=== PATIENT | male | born 1950 | race Caucasian/White ===

== ENCOUNTER 2017-03-29 07:51 | Inpatient (IN) | payer MEDICARE, OTHER ==
[~2017-03-29] VITALS: Ht 152.4 cm; Wt 49.8 kg
[2017-03-29] MEDS ORDERED: SODIUM CHLORIDE 0.9% 1,000 ML IV ONE ×2 (08:15→10:00)
[2017-03-29] MEDS ORDERED: ACETAMINOPHEN 325 MG TABLET PO ONE (08:30)
[2017-03-29] MEDS ORDERED: NACL1 PO (09:03)
[2017-03-29] MEDS ORDERED: ENOX40DI9 SQ (09:03)
[2017-03-29] MEDS ORDERED: [UNRECOGNIZED DRUG - CODE] PO (09:03)
[2017-03-29] MEDS ORDERED: TAMS0.4C32 PO (09:03)
[2017-03-29] MEDS ORDERED: FINA5TAB41 PO (09:03)
[2017-03-29] MEDS ORDERED: CARB4OS OU (09:03)
[2017-03-29] MEDS ORDERED: QUET100T PO (09:03)
[2017-03-29] MEDS ORDERED: METO25 PO (09:03)
[2017-03-29] MEDS ORDERED: ASPI81 PO (09:03)
[2017-03-29] MEDS ORDERED: ACET-66 PO (09:03)
[2017-03-29] MEDS ORDERED: LORA2TAB2 PO (09:03)
[2017-03-29] MEDS ORDERED: OXCA300T PO (09:03)
[2017-03-29] MEDS ORDERED: PROZ10 PO (09:03)
[2017-03-29] MEDS ORDERED: GABA-529 PO (09:03)
[2017-03-29] MEDS ORDERED: HYDR-3290 PO (09:03)
[2017-03-29 09:34] LABS: APPEARANCE,URINE CLEAR (CLEAR); BILIRUBIN,URINE NEGATIVE (NEGATIVE); GLUCOSE, URINE (UA) NEGATIVE (NEGATIVE); KETONES,URINE NEGATIVE (NEGATIVE); LEUKOCYTE ESTERASE ,URINE SMALL (NEGATIVE); NITRATE,URINE NEGATIVE (NEGATIVE); OCCULT BLOOD,URINE NEGATIVE (NEGATIVE); PH,URINE 5.5 (5.0-8.0); PROTEIN,URINE NEGATIVE (NEGATIVE); UROBILINOGEN,URINE 0.2 mg/dL (<=1.0)
[2017-03-29 09:45] LABS: BACTERIA,URINE None Seen /HPF (None Seen); RBC,URINE None Seen /HPF (0-2); SQUAMOUS EPITHELIAL CELL,UR Few /LPF (None Seen)
[2017-03-29 09:59] LABS: HEMATOCRIT 30.9 % (41-53); HEMOGLOBIN 10.2 g/dL (13.5-17.5); MEAN CORPUSCULAR VOLUME 100 fL (80-100); PLATELET COUNT (AUTO) 305 K/uL (150-450); RED BLOOD CELL COUNT(AUTO) 3.09 MIL/uL (4.50-5.90); RED CELL DISTRIBUTION WIDTH 15.8 % (11.5-14.5)
[2017-03-29] MEDS ORDERED: LORazepam 2 MG/ML VIAL IVP ONE (10:00)
[2017-03-29 10:03] LABS: ANION GAP 9 mmol/L (8-16); CALCIUM, TOTAL 9.4 mg/dL (8.8-10.5); CARBON DIOXIDE 29 mmol/L (22-29); CHLORIDE 105 mmol/L (98-107); GLOMERULAR FILTR. RATE CALC > 60 mL/min (>60); GLUCOSE,RANDOM 76 mg/dL (70-110); POTASSIUM 4.2 mmol/L (3.5-5.1); SODIUM SERUM 143 mmol/L (136-145); UREA NITROGEN, BLOOD 27 mg/dL (7-18)
[2017-03-29 10:06] LABS: INR 1.2 (0.9-1.1); PROTHROMBIN TIME 12.7 SEC (9.4-11.6)
[2017-03-29 10:16] LABS: INFLUENZA TYPE A NEGATIVE FOR TYPE A (NEGATIVE); INFLUENZA TYPE B NEGATIVE FOR TYPE B (NEGATIVE)
[2017-03-29 10:16] LABS: LACTIC ACID 2.7 mmol/L (0.4-2.0)
[2017-03-29 10:28] LABS: ALANINE AMINOTRANSFERASE 23 U/L (12-78); ALBUMIN 2.8 g/dL (3.4-5.0); ALKALINE PHOSPHATASE 97 U/L (46-116); ASPARTATE AMINOTRANSFERASE 39 U/L (15-37); BILIRUBIN,TOTAL 0.5 mg/dL (0.1-1.0); CKMB RELATIVE INDEX 2.7 % (0.0-4.0); CREATINE KINASE MB 20.9 ng/mL (0-5); CREATINE KINASE, TOTAL 767 U/L (39-308); TOTAL PROTEIN, SERUM 7.1 g/dL (6.4-8.2)
[2017-03-29] MEDS ORDERED: PIPERACILLIN/TAZO 3.375 GM/D5W 50 ML IV ONE (10:30)
[2017-03-29 10:34] LABS: BAND NEUTROPHILS % (MANUAL) 18 % (1-5); EOSINOPHILS % (MANUAL) 1 % (1-6); LYMPHOCYTES % (MANUAL) 8 % (22-44); MONOCYTES % (MANUAL) 1 % (2-9); SEGMENTED NEUTROPHILS % 72 % (40-70)
[2017-03-29] MEDS ORDERED: BISACODYL 10 MG RECTAL RECTAL SUPPOSITORY PR PRN (11:15)
[2017-03-29] MEDS ORDERED: ALBUTEROL SULFATE 2.5 MG/0.5 ML NEB SOLUTION NEB PRN (11:15)
[2017-03-29] MEDS ORDERED: IPRATROPIUM BROMIDE 0.5 MG/2.5 ML NEB SOLUTION NEB PRN (11:15)
[2017-03-29] MEDS ORDERED: VANCOMYCIN HCL 1 GM/D5% WATER 200 ML IV ONE (12:00)
[2017-03-29 13:28] VITALS: BP 94/32
[2017-03-29] MEDS: SODIUM CHLORIDE 0.9% 1,000 ML IV SCH ×2 (13:56→22:40)
[2017-03-29] MEDS: PHENYLEPHRINE 200 MG/D5%-WATER 250 ML IV PRN (15:29)
[2017-03-29 16:00] VITALS: BP 93/51
[2017-03-29] MEDS ORDERED: ALBUMIN HUMAN 5%-12.5GM/250ML 250 ML IV SCH (16:00)
[2017-03-29] MEDS: PIPERACILLIN/TAZO 3.375 GM/D5W 50 ML IV SCH ×2 (17:16→22:41)
[2017-03-29] MEDS: ALBUMIN HUMAN 25%-12.5GM/50ML 50 ML IV SCH ×2 (17:16→22:40)
[2017-03-29 20:00] VITALS: BP 105/50
[2017-03-29] MEDS ORDERED: PNEUMOCOCCAL VACCINE POLYVALENT 0.5 ML VIAL [PPSV23] IM ONE (20:15)
[2017-03-29] MEDS: ACETAMINOPHEN 325 MG TABLET PO PRN (20:41)
[2017-03-29] MEDS: HEPARIN SODIUM,PORCINE 5,000 UNITS/ML VIAL SQ SCH (20:41)
[2017-03-29] MEDS: DOCUSATE SODIUM 100 MG CAPSULE PO SCH ×2 (20:41→21:00)
[2017-03-29 23:00] VITALS: BP_SYST 121; BP_SYST 144; BP_DIAS 59; BP_DIAS 62
[2017-03-29] MEDS: MORPHINE SULFATE 2 MG/ML SYRINGE IVP PRN (23:09)
[2017-03-29 23:15] VITALS: BP 122/59
[2017-03-30] VITALS (7 sets, daily range): BP systolic 99–161; BP diastolic 41–83
[2017-03-30] MEDS: LORazepam 2 MG/ML VIAL IVP PRN ×3 (03:42→20:09)
[2017-03-30] MEDS: PIPERACILLIN/TAZO 3.375 GM/D5W 50 ML IV SCH ×4 (05:11→22:43)
[2017-03-30] MEDS: ALBUMIN HUMAN 25%-12.5GM/50ML 50 ML IV SCH ×4 (05:11→22:43)
[2017-03-30 06:08] LABS: ANION GAP 6 mmol/L (8-16); CALCIUM, TOTAL 8.1 mg/dL (8.8-10.5); CARBON DIOXIDE 28 mmol/L (22-29); CHLORIDE 111 mmol/L (98-107); GLOMERULAR FILTR. RATE CALC > 60 mL/min (>60); GLUCOSE,RANDOM 58 mg/dL (70-110); PHOSPHORUS 3.9 mg/dL (2.5-4.9); POTASSIUM 3.5 mmol/L (3.5-5.1); SODIUM SERUM 145 mmol/L (136-145); THYROID STIMULATING HORMONE 4.57 uIU/mL (0.36-3.74); UREA NITROGEN, BLOOD 22 mg/dL (7-18)
[2017-03-30 06:22] LABS: HEMATOCRIT 25.2 % (41-53); HEMOGLOBIN 8.6 g/dL (13.5-17.5); MEAN CORPUSCULAR HEMOGLOBIN 33.7 pg (26.0-34.0); MEAN CORPUSCULAR HGB CONC 34.1 G/dL (31.0-37.0); MEAN CORPUSCULAR VOLUME 99 fL (80-100); PLATELET COUNT (AUTO) 281 K/uL (150-450); RED BLOOD CELL COUNT(AUTO) 2.56 MIL/uL (4.50-5.90); RED CELL DISTRIBUTION WIDTH 16.2 % (11.5-14.5)
[2017-03-30] MEDS: SODIUM CHLORIDE 0.9% 1,000 ML IV SCH (08:00)
[2017-03-30] MEDS ORDERED: VANCOMYCIN HCL 500 MG in DEXTROSE 5%-WATER 100 ML IV SCH (08:00)
[2017-03-30] MEDS ORDERED: DEXTROSE 50%-WATER 25 GM/50 ML SYRINGE IVP ONE (08:15)
[2017-03-30] MEDS: PANTOPRAZOLE SODIUM 40 MG/VIAL IVP SCH (08:20)
[2017-03-30] MEDS: HEPARIN SODIUM,PORCINE 5,000 UNITS/ML VIAL SQ SCH ×2 (09:00→20:09)
[2017-03-30] MEDS: DOCUSATE SODIUM 100 MG CAPSULE PO SCH ×2 (09:00→20:09)
[2017-03-30 09:23] LABS: BAND NEUTROPHILS % (MANUAL) 27 % (1-5); LYMPHOCYTES % (MANUAL) 1 % (22-44); METAMYELOCYTES % 1 % (0-0); MONOCYTES % (MANUAL) 2 % (2-9); SEGMENTED NEUTROPHILS % 69 % (40-70)
[2017-03-30] MEDS: MORPHINE SULFATE 2 MG/ML SYRINGE IVP PRN (09:56)
[2017-03-30] MEDS ORDERED: SODIUM CHLORIDE 0.9% 500 ML IV ONE (10:52)
[2017-03-30 12:22] LABS: GLUCOSE,POINT OF CARE 49 MG/DL (70-110)
[2017-03-30] MEDS: MetroNIDAZOLE 500 MG/NACL 100 ML IV SCH ×2 (12:43→20:10)
[2017-03-30] MEDS: DEXTROSE 5%-0.45% SODIUM CHL 1,000 ML IV SCH (12:43)
[2017-03-30 18:29] LABS: C.DIFF GDH ANTIGEN, Stool Positive (Negative)
[2017-03-30 18:30] LABS: C.DIFF TOXINS A&B, Stool Positive (Negative)
[2017-03-30] MEDS ORDERED: WATER IV SCH (20:00)
[2017-03-30] MEDS ORDERED: VANCOMYCIN HCL IV SCH (20:00)
[2017-03-30] MEDS ORDERED: DEXTROSE 5% IV SCH (20:00)
[2017-03-30] MEDS: ACETAMINOPHEN 325 MG TABLET PO PRN (20:08)
[2017-03-30] MEDS: VANCOMYCIN HCL 250 MG/5 ML SOLUTION ORAL.SYG NG SCH (20:08)
[2017-03-30] MEDS: VANCOMYCIN HCL 750 MG in DEXTROSE 5%-WATER 150 ML IV SCH (20:08)
[2017-03-31] VITALS: BP 98/58
[2017-03-31] MEDS: VANCOMYCIN HCL 250 MG/5 ML SOLUTION ORAL.SYG NG SCH ×4 (00:48→18:31)
[2017-03-31] MEDS: DEXTROSE 5%-0.45% SODIUM CHL 1,000 ML IV SCH ×2 (00:51→15:02)
[2017-03-31 02:29] LABS: POTASSIUM 2.5 mmol/L (3.5-5.1)
[2017-03-31] MEDS ORDERED: SODIUM CHLORIDE 0.9% 250 ML IV ONE ×3 (02:40→20:54)
[2017-03-31] MEDS: POTASSIUM CHL 10 MEQ/WATER 50 ML IV PRN ×7 (02:42→13:46)
[2017-03-31] MEDS ORDERED: MAGNESIUM OXIDE 400 MG TABLET PO PRN (02:45)
[2017-03-31] MEDS ORDERED: MAGNESIUM SULFATE 4 GM/WATER 100 ML IV PRN (02:45)
[2017-03-31 02:48] LABS: MAGNESIUM 1.3 mg/dL (1.80-2.40)
[2017-03-31] MEDS: MetroNIDAZOLE 500 MG/NACL 100 ML IV SCH ×3 (03:13→20:56)
[2017-03-31] MEDS: PIPERACILLIN/TAZO 3.375 GM/D5W 50 ML IV SCH ×4 (03:13→22:57)
[2017-03-31] MEDS: ALBUMIN HUMAN 25%-12.5GM/50ML 50 ML IV SCH ×4 (03:13→22:57)
[2017-03-31] MEDS: PHENYLEPHRINE 200 MG/D5%-WATER 250 ML IV PRN (03:22)
[2017-03-31 04:00] VITALS: BP 109/63
[2017-03-31] MEDS: MAGNESIUM SULFATE 2 GM in DEXTROSE 5%-WATER 50 ML IV PRN (04:05)
[2017-03-31 05:54] LABS: ANION GAP 5 mmol/L (8-16); CARBON DIOXIDE 28 mmol/L (22-29); CHLORIDE 112 mmol/L (98-107); CREATININE 0.61 mg/dL (0.60-1.30); GLOMERULAR FILTR. RATE CALC > 60 mL/min (>60); GLUCOSE,RANDOM 134 mg/dL (70-110); SODIUM SERUM 145 mmol/L (136-145); UREA NITROGEN, BLOOD 13 mg/dL (7-18); VANCOMYCIN,RANDOM 11.6 mcg/mL (25.0-50.0)
[2017-03-31 06:02] LABS: HEMATOCRIT 25.1 % (41-53); HEMOGLOBIN 8.4 g/dL (13.5-17.5); MEAN CORPUSCULAR HEMOGLOBIN 32.9 pg (26.0-34.0); MEAN CORPUSCULAR HGB CONC 33.3 G/dL (31.0-37.0); MEAN CORPUSCULAR VOLUME 99 fL (80-100); PLATELET COUNT (AUTO) 268 K/uL (150-450); RED BLOOD CELL COUNT(AUTO) 2.54 MIL/uL (4.50-5.90)
[2017-03-31 06:59] LABS: POTASSIUM 2.8 mmol/L (3.5-5.1)
[2017-03-31 07:23] LABS: BAND NEUTROPHILS % (MANUAL) 22 % (1-5); EOSINOPHILS % (MANUAL) 2 % (1-6); LYMPHOCYTES % (MANUAL) 2 % (22-44); MONOCYTES % (MANUAL) 4 % (2-9); SEGMENTED NEUTROPHILS % 70 % (40-70)
[2017-03-31] MEDS: DOCUSATE SODIUM 100 MG CAPSULE PO SCH ×2 (07:57→20:33)
[2017-03-31 08:00] VITALS: BP 122/60
[2017-03-31] MEDS: PANTOPRAZOLE SODIUM 40 MG/VIAL IVP SCH (08:04)
[2017-03-31] MEDS: HEPARIN SODIUM,PORCINE 5,000 UNITS/ML VIAL SQ SCH ×2 (08:04→20:34)
[2017-03-31] MEDS: VANCOMYCIN HCL 750 MG in DEXTROSE 5%-WATER 150 ML IV SCH ×2 (08:05→15:03)
[2017-03-31] MEDS: ACETAMINOPHEN 325 MG TABLET PO PRN (09:33)
[2017-03-31 12:00] VITALS: BP 109/43
[2017-03-31 16:00] VITALS: BP 109/59
[2017-03-31 18:36] VITALS: BP 108/48
[2017-03-31] MEDS: POTASSIUM CHLORIDE 20 MEQ ER TABLET PO PRN (18:49)
[2017-03-31] MEDS: LORazepam 2 MG/ML VIAL IVP PRN (22:57)
[2017-04-01] MEDS ORDERED: SODIUM CHLORIDE 0.9% 50 ML ONE (00:01)
[2017-04-01] MEDS: VANCOMYCIN HCL 750 MG in DEXTROSE 5%-WATER 150 ML IV SCH ×3 (00:12→16:07)
[2017-04-01] MEDS: POTASSIUM CHL 10 MEQ/WATER 50 ML IV PRN ×4 (00:13→03:28)
[2017-04-01 00:44] VITALS: BP 125/61
[2017-04-01] MEDS: LORazepam 2 MG/ML VIAL IVP PRN ×3 (01:57→23:47)
[2017-04-01] MEDS: ALBUMIN HUMAN 25%-12.5GM/50ML 50 ML IV SCH ×4 (04:24→23:45)
[2017-04-01] MEDS: MetroNIDAZOLE 500 MG/NACL 100 ML IV SCH ×3 (04:25→21:26)
[2017-04-01] MEDS: PIPERACILLIN/TAZO 3.375 GM/D5W 50 ML IV SCH ×4 (04:25→23:46)
[2017-04-01 05:58] VITALS: BP 97/56
[2017-04-01] MEDS: DEXTROSE 5%-0.45% SODIUM CHL 1,000 ML IV SCH ×2 (06:35→23:47)
[2017-04-01] MEDS: VANCOMYCIN HCL 250 MG/5 ML SOLUTION ORAL.SYG NG SCH ×4 (06:35→17:25)
[2017-04-01 07:06] LABS: ANION GAP 6 mmol/L (8-16); BASOPHILS % (AUTO) 0.3 % (0.0-2.0); CALCIUM, TOTAL 8.1 mg/dL (8.8-10.5); CARBON DIOXIDE 26 mmol/L (22-29); CHLORIDE 112 mmol/L (98-107); CREATININE 0.53 mg/dL (0.60-1.30); EOSINOPHILS % (AUTO) 2.3 % (1.0-6.0); GLOMERULAR FILTR. RATE CALC > 60 mL/min (>60); GLUCOSE,RANDOM 92 mg/dL (70-110); HEMATOCRIT 22.5 % (41-53); HEMOGLOBIN 7.3 g/dL (13.5-17.5); LYMPHOCYTES # (AUTO) 0.7 K/uL (1.0-4.8); LYMPHOCYTES % (AUTO) 8.3 % (22.0-44.0); MEAN CORPUSCULAR HEMOGLOBIN 32.2 pg (26.0-34.0); MEAN CORPUSCULAR HGB CONC 32.6 G/dL (31.0-37.0); MEAN CORPUSCULAR VOLUME 99 fL (80-100); MONOCYTES # (AUTO) 0.4 K/uL (0.1-1.0); MONOCYTES % (AUTO) 4.5 % (2.0-9.0); NEUTROPHILS # (AUTO) 7.2 K/uL (1.8-7.7); NEUTROPHILS % (AUTO) 84.6 % (40.0-70.0); PLATELET COUNT (AUTO) 205 K/uL (150-450); POTASSIUM 3.2 mmol/L (3.5-5.1); RED BLOOD CELL COUNT(AUTO) 2.28 MIL/uL (4.50-5.90); RED CELL DISTRIBUTION WIDTH 16.4 % (11.5-14.5); SODIUM SERUM 144 mmol/L (136-145); UREA NITROGEN, BLOOD 9 mg/dL (7-18)
[2017-04-01] MEDS: DOCUSATE SODIUM 100 MG CAPSULE PO SCH ×2 (07:34→21:26)
[2017-04-01] MEDS: POTASSIUM CHLORIDE 20 MEQ ER TABLET PO PRN ×2 (07:42→17:24)
[2017-04-01] MEDS: MAGNESIUM SULFATE 2 GM in DEXTROSE 5%-WATER 50 ML IV PRN (08:12)
[2017-04-01] MEDS: HEPARIN SODIUM,PORCINE 5,000 UNITS/ML VIAL SQ SCH ×2 (08:12→21:26)
[2017-04-01 08:13] VITALS: BP 100/56
[2017-04-01] MEDS: PANTOPRAZOLE SODIUM 40 MG/VIAL IVP SCH (10:34)
[2017-04-01 11:07] LABS: GLUCOMETER DEV NAME(LOC) 5S 2N; GLUCOSE,POINT OF CARE 73 MG/DL (70-110)
[2017-04-01 11:46] VITALS: BP 99/54
[2017-04-01 16:11] VITALS: BP 102/52
[2017-04-01 19:34] VITALS: BP 109/78
[2017-04-02] MEDS ORDERED: SODIUM CHLORIDE 0.9% 250 ML IV ONE ×2 (00:16→16:58)
[2017-04-02 00:18] VITALS: BP 145/67
[2017-04-02] MEDS: VANCOMYCIN HCL 750 MG in DEXTROSE 5%-WATER 150 ML IV SCH ×2 (00:40→08:49)
[2017-04-02] MEDS: VANCOMYCIN HCL 250 MG/5 ML SOLUTION ORAL.SYG NG SCH ×4 (00:40→18:33)
[2017-04-02] MEDS: ALBUMIN HUMAN 25%-12.5GM/50ML 50 ML IV SCH ×4 (04:16→19:11)
[2017-04-02] MEDS: PIPERACILLIN/TAZO 3.375 GM/D5W 50 ML IV SCH ×4 (04:16→18:34)
[2017-04-02] MEDS: MetroNIDAZOLE 500 MG/NACL 100 ML IV SCH ×3 (04:16→20:31)
[2017-04-02 04:41] VITALS: BP 125/55
[2017-04-02] MEDS: POTASSIUM CHL 10 MEQ/WATER 50 ML IV PRN ×2 (05:52→14:13)
[2017-04-02 07:33] VITALS: BP 101/64
[2017-04-02 07:50] LABS: BASOPHILS % (AUTO) 0.4 % (0.0-2.0); EOSINOPHILS % (AUTO) 7.4 % (1.0-6.0); HEMATOCRIT 23.8 % (41-53); HEMOGLOBIN 7.8 g/dL (13.5-17.5); LYMPHOCYTES # (AUTO) 0.9 K/uL (1.0-4.8); LYMPHOCYTES % (AUTO) 16.8 % (22.0-44.0); MEAN CORPUSCULAR HEMOGLOBIN 32.4 pg (26.0-34.0); MEAN CORPUSCULAR HGB CONC 32.9 G/dL (31.0-37.0); MEAN CORPUSCULAR VOLUME 99 fL (80-100); MONOCYTES # (AUTO) 0.4 K/uL (0.1-1.0); MONOCYTES % (AUTO) 8.1 % (2.0-9.0); NEUTROPHILS # (AUTO) 3.5 K/uL (1.8-7.7); NEUTROPHILS % (AUTO) 67.3 % (40.0-70.0); PLATELET COUNT (AUTO) 229 K/uL (150-450); RED BLOOD CELL COUNT(AUTO) 2.42 MIL/uL (4.50-5.90); RED CELL DISTRIBUTION WIDTH 16.4 % (11.5-14.5)
[2017-04-02 08:05] LABS: ANION GAP 2 mmol/L (8-16); CARBON DIOXIDE 28 mmol/L (22-29); CHLORIDE 108 mmol/L (98-107); CREATININE 0.56 mg/dL (0.60-1.30); GLOMERULAR FILTR. RATE CALC > 60 mL/min (>60); GLUCOSE,RANDOM 91 mg/dL (70-110); POTASSIUM 3.6 mmol/L (3.5-5.1); SODIUM SERUM 138 mmol/L (136-145); UREA NITROGEN, BLOOD 7 mg/dL (7-18); VANCOMYCIN,RANDOM 22.5 mcg/mL (25.0-50.0)
[2017-04-02] MEDS: PANTOPRAZOLE SODIUM 40 MG/VIAL IVP SCH (08:50)
[2017-04-02] MEDS: HEPARIN SODIUM,PORCINE 5,000 UNITS/ML VIAL SQ SCH ×2 (08:50→20:31)
[2017-04-02] MEDS: DOCUSATE SODIUM 100 MG CAPSULE PO SCH ×2 (08:50→20:30)
[2017-04-02] MEDS ORDERED: MAGNESIUM SULFATE 2 GM in DEXTROSE 5%-WATER 50 ML IV PRN (10:15)
[2017-04-02] MEDS ORDERED: MAGNESIUM OXIDE 400 MG TABLET PO PRN (10:15)
[2017-04-02] MEDS ORDERED: MAGNESIUM SULFATE 4 GM/WATER 100 ML IV PRN (10:15)
[2017-04-02 12:45] VITALS: BP 127/68
[2017-04-02] MEDS ORDERED: LIDOCAINE HCL/PF 1% 30 ML VIAL ONE (14:31)
[2017-04-02] MEDS ORDERED: HEPARIN SODIUM 1000 UNITS/NS 500 ML ONE (14:31)
[2017-04-02] MEDS ORDERED: IOHEXOL 240 MG/ML 50 ML VIAL ONE (14:38)
[2017-04-02] MEDS ORDERED: MIDAZOLAM HCL 2 MG/2 ML VIAL ONE (15:04)
[2017-04-02] MEDS ORDERED: FentaNYL CITRATE-PF 100 MCG/2 ML VIAL ONE (15:04)
[2017-04-02] MEDS: DEXTROSE 5%-0.45% SODIUM CHL 1,000 ML IV SCH (17:09)
[2017-04-02] MEDS: VANCOMYCIN HCL 500 MG in DEXTROSE 5%-WATER 100 ML IV SCH (17:11)
[2017-04-02 17:18] VITALS: BP 110/66
[2017-04-02] MEDS ORDERED: POTASSIUM CHLORIDE 10% 40 MEQ/30 ML LIQUID UDCUP NG ONE (18:15)
[2017-04-02 18:59] LABS: SPECIMENTYPE,BODY FLUID PLEURAL
[2017-04-02 19:49] VITALS: BP 123/69
[2017-04-02] MEDS: LORazepam 2 MG/ML VIAL IVP PRN (21:37)
[2017-04-02 21:43] LABS: APPEARANCE,SPUN,BODY FLUID CLEAR (CLEAR); APPEARANCE,UNSPUN,BODY FLUID CLOUDY (CLEAR); COLOR,BODY FLUID AMBER (LT YELLOW); TOTAL VOLUME,BODY FLUID 20 mL
[2017-04-02 21:44] LABS: BASOPHILS,BODY FLUID 0 %; EOSINOPHILS,BF (ANAL) 0 %; LYMPHOCYTES,BODY FLUID 100 %; MONOCYTES,BODY FLUID 0 %; NEUTROPHILS,BODY FLUID 0 %; PH, BODY FLUID 8; WBC, BODY FLUID 2.7 /cu. mm.
[2017-04-03 00:05] VITALS: BP 118/71
[2017-04-03] MEDS: PIPERACILLIN/TAZO 3.375 GM/D5W 50 ML IV SCH ×6 (00:27→21:45)
[2017-04-03] MEDS: VANCOMYCIN HCL 500 MG in DEXTROSE 5%-WATER 100 ML IV SCH ×4 (00:49→23:26)
[2017-04-03] MEDS: VANCOMYCIN HCL 250 MG/5 ML SOLUTION ORAL.SYG NG SCH ×5 (00:49→23:26)
[2017-04-03] MEDS: ALBUMIN HUMAN 25%-12.5GM/50ML 50 ML IV SCH ×5 (00:49→22:21)
[2017-04-03] MEDS: LORazepam 2 MG/ML VIAL IVP PRN (02:57)
[2017-04-03] MEDS: MetroNIDAZOLE 500 MG/NACL 100 ML IV SCH ×3 (04:53→21:44)
[2017-04-03 05:41] VITALS: BP 123/77
[2017-04-03] MEDS: PANTOPRAZOLE SODIUM 40 MG/VIAL IVP SCH (07:29)
[2017-04-03] MEDS: HEPARIN SODIUM,PORCINE 5,000 UNITS/ML VIAL SQ SCH ×2 (07:29→21:45)
[2017-04-03] MEDS: DOCUSATE SODIUM 100 MG CAPSULE PO SCH ×2 (07:44→21:00)
[2017-04-03 08:16] LABS: ANION GAP 6 mmol/L (8-16); CALCIUM, TOTAL 8.4 mg/dL (8.8-10.5); CARBON DIOXIDE 28 mmol/L (22-29); CHLORIDE 104 mmol/L (98-107); CREATININE 0.55 mg/dL (0.60-1.30); GLOMERULAR FILTR. RATE CALC > 60 mL/min (>60); GLUCOSE,RANDOM 109 mg/dL (70-110); POTASSIUM 3.7 mmol/L (3.5-5.1); SODIUM SERUM 138 mmol/L (136-145); UREA NITROGEN, BLOOD 6 mg/dL (7-18)
[2017-04-03 08:20] VITALS: BP 108/69
[2017-04-03] MEDS: POTASSIUM CHL 10 MEQ/WATER 50 ML IV PRN ×2 (08:42→14:12)
[2017-04-03 13:00] VITALS: BP_SYST 116; BP_DIAS 6; BP_DIAS 63
[2017-04-03] MEDS: DEXTROSE 5%-0.45% SODIUM CHL 1,000 ML IV SCH ×2 (15:24→15:27)
[2017-04-03 16:02] VITALS: BP 117/64
[2017-04-03 20:53] VITALS: BP 105/62
[2017-04-04 00:16] VITALS: BP 106/59
[2017-04-04] MEDS: PIPERACILLIN/TAZO 3.375 GM/D5W 50 ML IV SCH ×3 (03:01→16:42)
[2017-04-04] MEDS: MetroNIDAZOLE 500 MG/NACL 100 ML IV SCH ×2 (03:22→11:37)
[2017-04-04] MEDS: ALBUMIN HUMAN 25%-12.5GM/50ML 50 ML IV SCH ×3 (04:37→16:06)
[2017-04-04] MEDS: VANCOMYCIN HCL 250 MG/5 ML SOLUTION ORAL.SYG NG SCH ×3 (05:10→17:28)
[2017-04-04] MEDS: DEXTROSE 5%-0.45% SODIUM CHL 1,000 ML IV SCH (05:11)
[2017-04-04 05:59] VITALS: BP 119/67
[2017-04-04 07:07] LABS: ANION GAP 4 mmol/L (8-16); CALCIUM, TOTAL 7.9 mg/dL (8.8-10.5); CARBON DIOXIDE 29 mmol/L (22-29); CHLORIDE 102 mmol/L (98-107); CREATININE 0.54 mg/dL (0.60-1.30); GLOMERULAR FILTR. RATE CALC > 60 mL/min (>60); GLUCOSE,RANDOM 105 mg/dL (70-110); POTASSIUM 3.9 mmol/L (3.5-5.1); SODIUM SERUM 135 mmol/L (136-145); UREA NITROGEN, BLOOD 5 mg/dL (7-18); VANCOMYCIN,RANDOM 18.8 mcg/mL (25.0-50.0)
[2017-04-04] MEDS: HEPARIN SODIUM,PORCINE 5,000 UNITS/ML VIAL SQ SCH (07:53)
[2017-04-04] MEDS: VANCOMYCIN HCL 500 MG in DEXTROSE 5%-WATER 100 ML IV SCH ×2 (07:53→17:27)
[2017-04-04] MEDS: PANTOPRAZOLE SODIUM 40 MG/VIAL IVP SCH (07:53)
[2017-04-04] MEDS: DOCUSATE SODIUM 100 MG CAPSULE PO SCH (08:16)
[2017-04-04 08:34] VITALS: BP 143/71
[2017-04-04 12:21] VITALS: BP 144/76
[2017-04-04] MEDS: POTASSIUM CHL 10 MEQ/WATER 50 ML IV PRN ×3 (13:33→18:43)
[2017-04-04] MEDS ORDERED: ALBU2550 IV (14:02)
[2017-04-04] MEDS ORDERED: DSS100 PO (14:03)
[2017-04-04] MEDS ORDERED: [UNRECOGNIZED DRUG - CODE] IV (14:04)
[2017-04-04] MEDS ORDERED: METR500 IV (14:05)
[2017-04-04] MEDS ORDERED: HEPA500018 SQ (14:05)
[2017-04-04] MEDS ORDERED: PANT40TA25 IVP (14:06)
[2017-04-04] MEDS ORDERED: PIPE3.377 IV (14:06)
[2017-04-04] MEDS ORDERED: VANC250C13 NG (14:11)
[2017-04-04] MEDS ORDERED: VANC250C13 IV (14:23)
[2017-04-04] MEDS ORDERED: ACET325C PO (14:25)
[2017-04-04] MEDS ORDERED: AUD NEB (14:26)
[2017-04-04] MEDS ORDERED: BISA10S PR (14:27)
[2017-04-04] MEDS ORDERED: IPRNEB NEB (14:28)
[2017-04-04] MEDS ORDERED: LORA0.5T2 IVP (14:30)
[2017-04-04] MEDS ORDERED: MAGOX PO (14:31)
[2017-04-04] MEDS ORDERED: [UNRECOGNIZED DRUG - CODE] IV (14:32)
[2017-04-04] MEDS ORDERED: [UNRECOGNIZED DRUG - CODE] IV (14:33)
[2017-04-04] MEDS ORDERED: MS100DRIP IVP (14:34)
[2017-04-04] MEDS ORDERED: KCL10IV IV (14:36)
[2017-04-04] MEDS ORDERED: KDUR20 PO (14:39)
[2017-04-04] MEDS ORDERED: MULT1TAB60 NG (14:41)
[2017-04-04] MEDS ORDERED: VANC500FZ IV (14:51)
[2017-04-04 16:23] VITALS: BP 100/69
[2017-04-04 19:52] VITALS: BP 120/77
== END 2017-04-04 20:30 | DRG 871 ==
LOC: EMS 07:53 → ICU 12:06 → 5S 03-31 16:55
PROVIDERS: ADMIT Internal Medicine; ATTEND Internal Medicine
PROC: 0W9930Z Drainage of Right Pleural Cavity with Drainage Device, Percutaneous Approach (ICD-10-PCS; principal; 2017-04-02)
DX: A41.9 Sepsis, unspecified organism (principal); E43 Unspecified severe protein-calorie malnutrition; J86.9 Pyothorax without fistula; R65.21 Severe sepsis with septic shock; J90 Pleural effusion, not elsewhere classified; G92 Toxic encephalopathy; I95.9 Hypotension, unspecified; A04.72 Enterocolitis due to Clostridium difficile, not specified as recurrent; E22.2 Syndrome of inappropriate secretion of antidiuretic hormone; F72 Severe intellectual disabilities; D63.8 Anemia in other chronic diseases classified elsewhere; I48.91 Unspecified atrial fibrillation; E86.0 Dehydration; F20.9 Schizophrenia, unspecified; I10 Essential (primary) hypertension; Z68.21 Body mass index [BMI] 21.0-21.9, adult; F32.9 Major depressive disorder, single episode, unspecified; R13.10 Dysphagia, unspecified; Z87.01 Personal history of pneumonia (recurrent); Z79.82 Long term (current) use of aspirin; S81.811A Laceration without foreign body, right lower leg, initial encounter; X58.XXXA Exposure to other specified factors, initial encounter; Y93.89 Activity, other specified; Y92.89 Other specified places as the place of occurrence of the external cause; Y99.8 Other external cause status
CPT/HCPCS: 36245; 51702; 71250; 74000; 75989; 76604; 76937; 82465; 82945; 82962; 83605; 83615; 83735; 83986; 84100; 84132; 84145; 84157; 84443; 87015; 87040; 87070; 87081; 87101; 87205; 87324; 87449; 87804; 88108; 89051; 90471; 92610; 93005; 93306; 96365; 96366; 96368; 96375; 99291; C9113; J1644; J2060; J2250; J2270; J2370; J2543; J3010; J3370; J3475; J3480; J3490; J7030; J7040; J7050; J7060; P9047; Q9966